=== PATIENT | female | born 1950 | race Caucasian/White ===

== ENCOUNTER 2016-11-20 14:51 | Outpatient (CLI) | payer MEDICARE, BC | END 2016-11-20 14:52 | disposition home or self-care (01) | DX: Z12.31 Encounter for screening mammogram for malignant neoplasm of breast (principal); Z80.3 Family history of malignant neoplasm of breast ==

== ENCOUNTER 2016-12-25 06:09 | Day surgery (SDC) | payer MEDICARE, BC ==
[2016-12-25] MEDS ORDERED: LACTATED RINGERS 1,000 ML IV ONE (07:11)
[2016-12-25] MEDS ORDERED: MIDAZOLAM 2 MG/2 ML VIAL IVP ONE (08:13)
[2016-12-25] MEDS ORDERED: fentaNYL 100 MCG/2 ML VIAL IVP ONE (08:13)
== END 2016-12-25 06:10 | disposition home or self-care (01) ==
PROC: 0DJD8ZZ Inspection of Lower Intestinal Tract, Via Natural or Artificial Opening Endoscopic (ICD-10-PCS; principal; 2016-12-25 08:15)
DX: Z12.11 Encounter for screening for malignant neoplasm of colon (principal); K64.8 Other hemorrhoids; E11.9 Type 2 diabetes mellitus without complications; E78.5 Hyperlipidemia, unspecified; I10 Essential (primary) hypertension; K21.9 Gastro-esophageal reflux disease without esophagitis; Z79.84 Long term (current) use of oral hypoglycemic drugs; Z79.82 Long term (current) use of aspirin; Z88.2 Allergy status to sulfonamides; Z90.710 Acquired absence of both cervix and uterus; Z83.3 Family history of diabetes mellitus; Z82.49 Family history of ischemic heart disease and other diseases of the circulatory system
CPT/HCPCS: G0121; J7120

== ENCOUNTER 2017-12-12 08:25 | Outpatient (CLI) | payer MEDICARE, BC ==
--- NOTE | 2017-12-13 15:41 | Mammography Report ---
DIGITAL SCREENING MAMMOGRAM: 12/12/2017 CLINICAL INDICATION: A 66-year-old for screening. COMPARISON: 10/2016, 07/2014, 05/2012, 08/2010. TECHNIQUE: Routine CC and MLO projections were obtained of the breasts. FINDINGS: The breasts demonstrate scattered fibroglandular densities bilaterally. Coarse and punctate, typically benign calcifications are present. No suspicious masses, clustered microcalcifications, or regions of architectural distortion are identified. IMPRESSION: BENIGN FINDINGS. RECOMMENDATION: Routine annual screening unless otherwise clinically indicated. BIRADS CATEGORY 2 - BENIGN FINDINGS. STANDARD QUALIFYING STATEMENTS: 1. This examination was reviewed with the aid of Computer-Aided Detection (CAD). 2. A negative or benign imaging report should not delay biopsy if clinically suspicious findings are present. Consider surgical consultation if warranted. More than 5% of cancers are not identified by imaging. 3. Dense breasts may obscure an underlying neoplasm. TD: 12/13/2017 15:40
== END 2017-12-12 08:26 | disposition home or self-care (01) ==
LOC: DI 08:25
PROVIDERS: ATTEND Physician Assistant
DX: Z12.31 Encounter for screening mammogram for malignant neoplasm of breast (principal)
CPT/HCPCS: 77067

== ENCOUNTER 2020-11-30 09:44 | Outpatient (CLI) | payer MEDICARE, BC ==
--- NOTE | 2020-12-01 09:38 | Mammography Report ---
BILATERAL DIGITAL SCREENING MAMMOGRAM 3D/2D: 11/30/2020 CLINICAL: Routine screening. Comparison is made to exams dated: 12/12/2017 mammogram, 11/20/2016 mammogram, 08/25/2014 mammogram, a nd 06/19/2012 mammogram - [facility]. There are scattered fibroglandular elements in both breasts. No significant masses, calcifications, or other findings are seen in either breast. There has been no significant interval change. IMPRESSION: NEGATIVE There is no mammographic evidence of malignancy. A 1 year screening mammogram is recommended. This exam was interpreted at Station ID: [id number]. NOTE: For mammograms, a report in lay terms will be sent to the patient. Approximately 15% of breast malignancies will not be visualized mammographically. In the management of a palpable breast mass, a negative mammogram must not discourage biopsy of a clinically suspicious lesion. Electronically Signed By: Devin Pagan M.D. ddp/penrad:11/30/2020 11:11:15 ACR BI-RADS Category 1: Negative 3341F PARENCHYMAL PATTERN: (A) - The breast(s) demonstrate(s) scattered fibroglandular densities. BI-RADS CATEGORY: (1) - 1 RECOMMENDATION: (ANNUAL) - Recommend routine annual screening mammography. [id number] 1 year screening LATERALITY: (B)
== END 2020-11-30 09:45 | disposition home or self-care (01) ==
LOC: DI 09:44
PROVIDERS: ATTEND Nurse Practitioner Family
DX: Z12.31 Encounter for screening mammogram for malignant neoplasm of breast (principal)

== ENCOUNTER 2020-12-03 07:16 | Day surgery (SDC) | payer MEDICARE, BC ==
[2020-12-03] MEDS ORDERED: LACTATED RINGERS 1,000 ML IV ONE ×2 (08:00→09:06)
[2020-12-03] MEDS ORDERED: fentaNYL 250 MCG/5 ML VIAL ONE (08:06)
[2020-12-03] MEDS ORDERED: MIDAZOLAM 2 MG/2 ML VIAL ONE ×3 (08:06→08:44)
[2020-12-03 09:29] VITALS: BP 114/69
== END 2020-12-03 07:17 | disposition home or self-care (01) ==
LOC: SDS 07:16
PROVIDERS: ATTEND Surgery
PROC: 0DBL8ZX Excision of Transverse Colon, Via Natural or Artificial Opening Endoscopic, Diagnostic (ICD-10-PCS; principal; 2020-12-03 08:30)
DX: Z12.11 Encounter for screening for malignant neoplasm of colon (principal); D12.3 Benign neoplasm of transverse colon; K57.30 Diverticulosis of large intestine without perforation or abscess without bleeding; Z83.71 Family history of colonic polyps; I10 Essential (primary) hypertension; E11.9 Type 2 diabetes mellitus without complications; Z79.84 Long term (current) use of oral hypoglycemic drugs
CPT/HCPCS: 45380; J3010; J7120; 88305

== ENCOUNTER 2022-10-17 12:45 | Outpatient (CLI) | payer MEDICARE, BC ==
--- NOTE | 2022-10-17 16:14 | DEXA Report ---
PROCEDURE: Dexa Spine and/or Hip INDICATIONS: OSTEOPENIA TECHNIQUE: Dual energy x-ray absorptiometry (DXA) was performed on a [employer] System. Regions measur ed are the AP Spine, femoral neck, and if needed forearm. COMPARISON: 12/10/2010 FINDINGS: Lumbar Spine: Bone Mineral Density 1.236 g/cm/cm,T score 0.1, normal Left Femoral Neck: Bone Mineral Density 0.775 g/cm/cm, T score minus 1., Osteopenia Left Hip: Bone Mineral Density 0.775 g/cm/cm,T score -1.8, osteopenia (T score greater or equal to -1.0: NORMAL) (T score from -1.1 to -2.4: OSTEOPENIA) (T score less than or equal to -2.5 to: OSTEOPOROSIS) Impression: Osteopenia. Patients with diagnosis of osteoporosis or osteopenia should have regular bone mineral density assess ment. For those eligible for Medicare, routine testing is allowed once every 2 years. Testing frequ ency can be increased for patients who have rapidly progressing disease or for those who are receivin g medical therapy to restore bone mass. Reviewed by: Bre Rader MD, PhD on 10/17/2022 4:12 PM PST Approved by: Bre Rader MD, PhD on 10/17/2022 4:12 PM PST Station ID: [id number]
== END 2022-10-17 12:46 | disposition home or self-care (01) ==
LOC: DI 12:45
PROVIDERS: ATTEND Nurse Practitioner Family
DX: M85.89 Other specified disorders of bone density and structure, multiple sites (principal)

== ENCOUNTER 2022-11-01 13:47 | Outpatient (CLI) | payer MEDICARE, BC ==
--- NOTE | 2022-11-02 15:38 | Mammography Report ---
BILATERAL DIGITAL SCREENING MAMMOGRAM 3D/2D: 11/01/2022 CLINICAL: Routine screening. Comparison is made to exams dated: 11/30/2020 mammogram, 12/12/2017 mammogram, 11/20/2016 mammogram, mammogram, and 06/19/2012 mammogram - [facility]. There are scattered areas of fibroglandular density in both breasts (category b / 25%-50% glandular t issue). No significant masses, calcifications, or other findings are seen in either breast. There has been no significant interval change. IMPRESSION: NEGATIVE There is no mammographic evidence of malignancy. A 1 year screening mammogram is recommended. Based on the Tyrer Cuzick model (a risk assessment model) the patients lifetime risk is 6.0% and her 10 year risk is 5.1%. According to the ACR, ACS, and NCCN guidelines, an annual breast MRI exam nael g with mammogram is recommended if the patients lifetime risk is 20% or greater. This exam was interpreted at Station ID: [id number]. NOTE: For mammograms, a report in lay terms will be sent to the patient. Approximately 15% of breast malignancies will not be visualized mammographically. In the management of a palpable breast mass, a negative mammogram must not discourage biopsy of a clinically suspicious lesion. Electronically Signed By: Rakesh segal/mana:11/01/2022 18:40:57 letter sent: No_Letter ACR BI-RADS Category 1: Negative 3341F PARENCHYMAL PATTERN: (A) - The breast(s) demonstrate(s) scattered fibroglandular densities. BI-RADS CATEGORY: (1) - 1 Mammogram [id number] 1 year screening LATERALITY: (B)
== END 2022-11-01 13:48 | disposition home or self-care (01) ==
LOC: DI 13:47
PROVIDERS: ATTEND Nurse Practitioner Family
DX: Z12.31 Encounter for screening mammogram for malignant neoplasm of breast (principal)

== ENCOUNTER 2023-05-01 12:49 | Outpatient (CLI) | payer MEDICARE, BC ==
--- NOTE | 2023-05-01 16:20 | XRAY Report ---
PROCEDURE: Finger(s) LT INDICATIONS: SPRAIN OF LEFT MIDDLE FINGER TECHNIQUE: AP hand, 2 views of the third finger(s) acquired. COMPARISON: None. FINDINGS: Bones: No fractures or dislocations. No suspicious bony lesions. Soft tissues: No suspicious soft tissue calcifications or masses. IMPRESSION: No acute bony abnormality. Reviewed by: Arsh Magaña MD on 05/01/2023 3:18 PM [facility] Approved by: Arsh Magaña MD on 05/01/2023 3:18 PM [facility] Station ID: [id number]
== END 2023-05-01 23:59 | disposition home or self-care (01) ==
LOC: DI.S 12:49
PROVIDERS: ATTEND Physician Assistant
DX: S63.693A Other sprain of left middle finger, initial encounter (principal)

== ENCOUNTER 2023-09-01 08:00 | Outpatient (CLI) | payer MEDICARE, BC | END 2023-09-01 08:01 | disposition home or self-care (01) | LOC: LAB.S 08:00 | PROVIDERS: ATTEND Emergency Medicine | DX: R55 Syncope and collapse (principal) | CPT/HCPCS: 82962 ==

== ENCOUNTER 2023-09-01 11:21 | Emergency (ER) | payer MEDICARE, BC ==
[2023-09-01 12:04] LABS: BASOPHILS % (AUTO) 0.3 %; EOSINOPHILS % (AUTO) 0.5 %; HCT - HEMATOCRIT 36.9 % (37.0-47.0); MEAN CORPUSCULAR HEMOGLOBIN 30.5 pg (27.0-31.0); MEAN CORPUSCULAR HGB CONC 32.5 g/dL (32.0-36.0); MEAN CORPUSCULAR VOLUME 93.9 fL (81.0-99.0); MEAN PLATELET VOLUME 8.8 fL (7.9-10.8); MONOCYTES # (AUTO) 0.6 10^3/uL (0.0-1.0); MONOCYTES % (AUTO) 9.9 %; NEUTROPHILS # (AUTO) 4.4 10^3/uL (1.5-6.6); PLT - PLATELET COUNT 265 10^3/uL (130-450); RED BLOOD COUNT 3.93 10^6/uL (4.20-5.40); RED CELL DISTRIBUTION WIDTH 12.4 % (12.0-15.0); WHITE BLOOD COUNT 6.1 x10^3/uL (4.8-10.8)
[2023-09-01 12:18] LABS: ALBUMIN 4.5 g/dL (3.2-5.5); ALBUMIN/GLOBULIN RATIO 1.6 (1.0-2.2); BILIRUBIN,TOTAL 0.4 mg/dL (0.2-1.0); CALCIUM 9.6 mg/dL (8.5-10.3); CREATININE 1.2 mg/dL (0.6-1.3); POTASSIUM 3.1 mmol/L (3.5-4.5); TOTAL PROTEIN 7.4 g/dL (6.4-8.9)
[2023-09-01 12:26] LABS: TROPONIN I HIGH SENSITIVITY 8.5 ng/L (2.3-14.8)
[2023-09-01] MEDS ORDERED: POTASSIUM CHLORIDE 20 MEQ TABLET PO STA (14:20)
--- NOTE | 2023-09-01 14:20 | ED Physician Documentation ---
PD HPI HEAD INJURY - Stated complaint Stated Complaint: PASSED OUT/CLINIC REFERRED - Chief complaint Chief Complaint: Trauma Hd/Nk - History obtained from History obtained from: Patient - History of Present Illness Mechanism of head injury: Fell Where head injury occurred: Home Timing - onset: Today Associated symptoms: LOC, Nausea / vomiting, Neck pain. No: AMS - Additional information Additional information: 72-year-old female with history of hypertension And type 2 diabetes currently on lisinopril, hydrochlorothiazide, simvastatin, metformin presents to the emergency department today for what she describes as a syncopal episode. Patient says she about to go to the bathroom around 5 AM this morning overall felt normal said that she normally feels pretty sleepy when she first wakes up she said that she was using the toilet she does not member if she stood up or not but she woke up on the ground with blood over her forehead. She did hit her forehead she feels uncertain about the timing of her loss of consciousness whether it happened before the fall or after the fall. She originally presented to the walk-in clinic who sent her here to the emergency department. The walk- in clinic use Dermabond to repair the laceration over her forehead. She says since she has been here she feels no dizziness no chest pain no nausea vomiting mild neck pain but no spinal tenderness. Patient says that her neck tenderness feels more musculoskeletal. Patient denies any use of blood thinners. She also endorses that she recently had about a 30 pound weight loss it was intentional and she is been trying to cut back on her weight. She has not been able to follow-up with her primary care provider about this to make some possible medication adjustments to reflect this weight loss in regards to her lisinopril, hydrochlorothiazide, metformin. 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: Tubal ligation, Hysterectomy, Oophrectomy - Present Medications Home Medications: Ambulatory Orders Medication Instructions Recorded Confirmed Allertec 1 tab PO DAILY 01/23/16 12/03/20 Aspirin [Aspir-Low] 81 mg PO DAILY 01/23/16 12/03/20 Calcium Carbonate/Vitamin D3 1 tab PO DAILY 01/23/16 12/25/16 [Calcium 500 + Vit D Caplet] Metformin HCl [Fortamet] 500 mg PO TID 01/23/16 12/03/20 Multivitamin [Multivitamins] 1 tab PO DAILY 01/23/16 12/03/20 Simvastatin 20 mg PO DAILY 01/23/16 12/03/20 hydroCHLOROthiazide [Hydrodiuril] 25 mg PO DAILY 01/23/16 12/03/20 lisinopriL [Lisinopril] 5 mg PO DAILY 01/23/16 12/03/20 - Allergies Allergies/Adverse Reactions: Allergies Allergy/AdvReac Type Severity Reaction Status Date / Time Sulfa (Sulfonamide Allergy Unknown Verified 09/01/23 11:32 Antibiotics) - Social History Does the pt smoke?: No Smoking Status: Never smoker Does the pt drink ETOH?: Yes Does the pt have substance abuse?: No - Immunizations Immunizations are current?: Yes PD ED PE NORMAL - Vitals Vital signs reviewed: Yes - General General: Alert and oriented X 3, Well developed/nourished - HEENT HEENT: PERRL, Moist mucous membranes, Other (About a 4 cm laceration well- approximated with Dermabond to her forehead just superior to her nose. No raccoon eyes. No Reece sign ) - Neck Neck: Supple, no meningeal sign, No bony TTP - Cardiac Cardiac: RRR, No gallop, Strong equal pulses - Respiratory Respiratory: No respiratory distress, Clear bilaterally - Back Back: No CVA TTP, No spinal TTP - Extremities Extremities: No deformity - Neuro Neuro: Alert and oriented X 3, revenue manager 2-12 intact, No motor deficit, No sensory deficit, Normal speech Eye Opening: Spontaneous Motor: Obeys Commands Verbal: Oriented GCS Score: 15 - Psych Psych: Normal mood Results - Vitals Vitals: Vital Signs - 24 hr 09/01/23 09/01/23 09/01/23 11:27 14:01 15:13 Temperature 36.2 C L Heart Rate 76 70 68 Heart Rate [ Sitting] Heart Rate [ Standing] Heart Rate [ Supine] Respiratory 16 18 20 Rate Blood Pressure 118/63 145/78 H 146/69 H Blood Pressure [Sitting] Blood Pressure [Standing] Blood Pressure [Supine] O2 Saturation 99 100 97 09/01/23 09/01/23 16:35 16:39 Temperature Heart Rate Heart Rate [ 69 Sitting] Heart Rate [ 70 Standing] Heart Rate [ 68 Supine] Respiratory 18 Rate Blood Pressure Blood Pressure 157/75 H [Sitting] Blood Pressure 129/70 [Standing] Blood Pressure 153/73 H [Supine] O2 Saturation 100 Oxygen O2 Source Room air - EKG (time done) 1133 EKG releavant findings:: EKG personally interpreted by author of this note. Relevant findings are: Rate: Rate (enter#) (66) Rhythm: NSR Benson: Normal Intervals: Normal MS QRS: Normal Ischemia: Normal ST segments Computer interpretation: Agree with computer - Labs Labs: Laboratory Tests 09/01/23 09/01/23 11:59 11:59 WBC 6.1 RBC 3.93 L Hgb 12.0 Hct 36.9 L MCV 93.9 MCH 30.5 MCHC 32.5 RDW 12.4 Plt Count 265 MPV 8.8 Neut # (Auto) 4.4 Lymph # (Auto) 1.0 L [place] # (Auto) 0.6 Eos # (Auto) 0.0 Baso # (Auto) 0.0 Absolute Nucleated RBC 0.00 Nucleated RBC % 0.0 Sodium 133 L Potassium 3.1 L Chloride 94 L Carbon Dioxide 31 Anion Gap 8.0 BUN 17 Creatinine 1.2 Estimated GFR (MDRD) 44 L Glucose 169 H Calcium 9.6 Total Bilirubin 0.4 AST 17 ALT 13 Alkaline Phosphatase 63 Troponin I High Sens 8.5 Total Protein 7.4 Albumin 4.5 Globulin 2.9 Albumin/Globulin Ratio 1.6 Lipase 42 - Rads (name of study) ct head and cervical w/o Relevant Findings:: Final report received, EMP independent interpretation of test (No intracranial hemorrhage, no other acute intracranial abnormalities,), Other (Chronic cervical degenerative changes, no other acute findings or abnormalities) PD Medical Decision Making - ED course ED course: 72-year-old female presents emergency department sent in from walk-in clinic after experiencing what sounds like a vasovagal syncopal episode this morning upon first awakening. Head laceration was repaired with dermabond. CT head and cervical without con were complete. There were no acute abnormalities or findings. Patient remained stable throughout entire ER visit she did have mild orthostatic hypotension but was asymptomatic with this. Patient has not been able to follow-up with her primary care provider to discuss her 30 pound weight loss. She was told to hold off on taking her hydrochlorothiazide until she is able to follow-up with her primary care provider. Labs are complete in the emergency department, CBC did not reveal any acute leukocytosis, no significant anemia, chemistry did reveal potassium was 3.1 patient is on hydrochlorothiazide potassium was replaced with 40 mill equivalents p.EKG was also completed which did not reveal any bradycardia no ST elevation no T wave inversions and normal axis. CT head and neck were also complete which did not reveal any acute intracranial hemorrhages or acute cervical fractures or abnormalities. Serbian syncope risk score was -3 points making her very low risk of 30-day serious adverse event. Patient was monitored for over 4 hours in the emergency department she had no neurological changes no focal neurological deficits remained hemodynamically stable throughout entire visit. She was told she needs to follow-up with her primary care provider sometime next week for further evaluation of her labs and possible discontinuation of either hydrochlo rothiazide or lisinopril or reduction in doses. Patient was given very strict return precautions and was told that although labs and CT are normal today if she starts to feel worse or have any neurological deficits or changes to present back to the emergency department for further evaluation. She was able to provide teach back supportive partner at bedside who also understands return precautions and safe for discharge at this time. Departure - Departure Disposition: 01 Home, Self Care Clinical Impression: Syncope Qualifiers: Syncope type: vasovagal syncope Qualified Code(s): R55 - Syncope and collapse Condition: Good Instructions: ED Syncope Vasovagal Comments: Thank you for trusting us with your care we have completed a CT of your head and neck which were overall unremarkable. We also completed an EKG which is also not show any acute abnormalities or findings. Your potassium was found to be low we gave you 40 mill equivalents potassium orally. Because you have had this recent weight loss I would strongly encourage you to follow-up with your primary care provider about the syncopal episode that you experienced today and consider discontinuation or adjustment of medications especially your hydrochlorothiazide and lisinopril. Please come back to the emergency department if you are starting to experience any chest pain, dizziness, shortness of breath or any other concerning symptoms. As we discussed if you start to feel dizzy or have any vision changes or new confusion please comeback to the ER for further evalution. Forms: PCP List Discharge Date/Time: 09/01/23 16:40
--- NOTE | 2023-09-01 15:15 | CT Report ---
PROCEDURE: Head WO INDICATIONS: GLF, hit head, LOC TECHNIQUE: Noncontrast 4.5 mm thick angled axial sections acquired from the foramen magnum to the vertex. For r adiation dose reduction, the following was used: automated exposure control, adjustment of mA and/or kV according to patient size. COMPARISON: None. FINDINGS: Image quality: There is streak artifact seen through the skull base. CSF spaces: Basal cisterns are patent. No extra-axial fluid collections. Ventricles are normal in size and shape. Brain: No midline shift. No intracranial masses or hemorrhage. Calzada-white matter interface is norm al. Skull and face: Calvarium and visualized facial bones are intact, without suspicious lesions. Sinuses: Visualized sinuses and mastoids are clear. IMPRESSION: No intracranial hemorrhage is seen. No acute intracranial pathology. Reviewed by: Patrick Frost MD on 09/01/2023 2:13 PM [facility] Approved by: Patrick Frost MD on 09/01/2023 2:13 PM [facility] Station ID: [id number]
--- NOTE | 2023-09-01 15:16 | CT Report ---
PROCEDURE: Cervical Spine WO INDICATIONS: neck pain after GLF TECHNIQUE: Noncontrast 3 mm thick sections acquired from the skull base to the T4 level. Sagittal and coronal r eformats were then constructed. For radiation dose reduction, the following was used: automated exp osure control, adjustment of mA and/or kV according to patient size. COMPARISON: Correlation is made with the accompanying head CT. FINDINGS: Image quality: Excellent. Bones: No fractures or dislocations. Visualized superior ribs are intact. Focal degenerative change can be seen involving the C1-C2 interface anteriorly. There is mild to mode rate disc space narrowing seen at C4-C5. Moderate to severe disc space narrowing can be seen at C5-C6 and C6-C7, with associated endplate irregularity and sclerosis. At C5-C6 and C6-C7, with bridging an terior osteophytes are seen. Posteriorly directed endplate osteophytes are seen, which are worst at C 5-C6. Milder degenerative changes are seen elsewhere. Multiple levels of facet hypertrophy can be se en. Soft tissues: Prevertebral soft tissues are normal in thickness. No paravertebral hematomas. No ap ical pneumothoraces. IMPRESSION: Negative for acute fracture. Cervical spine degenerative changes can be seen, which are worst inferiorly. Reviewed by: Patrick Frost MD on 09/01/2023 2:15 PM [facility] Approved by: Patrick Frost MD on 09/01/2023 2:15 PM [facility] Station ID: [id number]
[2023-09-01] MEDS ORDERED: KETOROLAC 15 MG/ML VIAL IM STA (15:38)
[2023-09-01] MEDS ORDERED: ACETAMINOPHEN 325 MG TABLET PO STA (15:38)
[2023-09-01 16:41] VITALS: BP 153/73; O2SAT 100
== END 2023-09-01 16:40 | disposition home or self-care (01) ==
LOC: ED 11:21
DX: R55 Syncope and collapse (principal); E87.6 Hypokalemia; S01.81XD Laceration without foreign body of other part of head, subsequent encounter; W18.39XD Other fall on same level, subsequent encounter; I10 Essential (primary) hypertension; E11.9 Type 2 diabetes mellitus without complications; R63.4 Abnormal weight loss; Z79.84 Long term (current) use of oral hypoglycemic drugs
CPT/HCPCS: 36415; 70450; 72125; 80053; 83690; 84484; 85025; 93005; 96372; 99284; A9270

== ENCOUNTER 2024-02-22 08:26 | Outpatient (CLI) | payer MEDICARE, BC ==
--- NOTE | 2024-02-25 10:56 | Mammography Report ---
BILATERAL DIGITAL DIAGNOSTIC MAMMOGRAM 3D/2D: 02/22/2024 CLINICAL: Palpable lump in left chest wall. Due for bilateral exam. Comparison is made to exams dated: 11/01/2022 mammogram, 11/30/2020 mammogram, 12/12/2017 mammogram, 11/20 mammogram, and 08/25/2014 mammogram - [facility]. There are scattered areas of fibroglandular density in both breasts (category b / 25%-50% glandular t issue). No significant masses, calcifications, or other findings are seen in either breast. IMPRESSION: INCOMPLETE: NEEDS ADDITIONAL IMAGING EVALUATION There is no abnormality seen in the left breast to correspond with the area of clinical concern and p alpable abnormality indicated by triangular marker at 12 o'clock in the posterior depth, however, ul luann is recommended for further evaluation and is scheduled to immediately follow this examinatio n. Based on the Tyrer Cuzick model (a risk assessment model) the patient's lifetime risk is 5.4% and her 10 year risk is 5.4%. According to the ACR, ACS, and NCCN guidelines, an annual breast MRI exam nael g with mammogram is recommended if the patient's lifetime risk is 20% or greater. This exam was interpreted at Station ID: [id number]. NOTE: For mammograms, a report in lay terms will be sent to the patient. Approximately 15% of breast malignancies will not be visualized mammographically. In the management of a palpable breast mass, a negative mammogram must not discourage biopsy of a clinically suspicious lesion. Electronically Signed By: Rakesh Medina M.D. aty/:02/22/2024 09:15:46 ACR BI-RADS Category 0: Incomplete 3340F PARENCHYMAL PATTERN: (A) - The breast(s) demonstrate(s) scattered fibroglandular densities. BI-RADS CATEGORY: (0) - 0 Ultrasound [id number] Immediate follow-up LATERALITY: (L)
--- NOTE | 2024-02-25 10:57 | Ultrasound Report ---
LIMITED ULTRASOUND OF LEFT BREAST: 02/22/2024 CLINICAL: Palpable left breast lump. Comparison is made to exams dated: 11/01/2022 mammogram and 11/30/2020 mammogram - [facility]. Color flow ultrasound of the left breast upper inner quadrant was performed. Calzada scale images of t he real-time examination were reviewed. No significant abnormalities were seen sonographically in the left breast. Area of concern correlate s with a rib. IMPRESSION: NEGATIVE There is no sonographic evidence of malignancy. There is no abnormality seen in the left breast to correspond with the area of clinical concern and p alpable abnormality at 12 o'clock in the posterior depth in the upper aspect, however, recommend cli nical follow up for persistent or worsening symptoms, or development of any clinically suspicious fin dings. A 1 year screening mammogram is recommended. Findings and recommendations were conveyed to the patient during today's evaluation. This exam was interpreted at Station ID: [id number]. Electronically Signed By: Rakesh Medina M.D. aty/:02/22/2024 13:35:10 Ultrasound BI-RADS: 1 Negative BI-RADS CATEGORY: (1) - 1 RECOMMENDATION: (ANNUAL) - Recommend routine annual screening mammography. [id number] 1 year screening LATERALITY: (B)
== END 2024-02-22 08:27 | disposition home or self-care (01) ==
LOC: DI 08:26
PROVIDERS: ATTEND Nurse Practitioner Family
DX: N63.22 Unspecified lump in the left breast, upper inner quadrant (principal); R92.323 Mammographic fibroglandular density, bilateral breasts

== ENCOUNTER 2024-02-25 08:00 | Outpatient (CLI) | payer MEDICARE, BC | END 2024-02-25 23:59 | disposition home or self-care (01) | LOC: LAB 08:00 | PROVIDERS: ATTEND Emergency Medicine | DX: L72.3 Sebaceous cyst (principal) | CPT/HCPCS: 87070; 87205 ==

== ENCOUNTER 2024-04-14 06:21 | Day surgery (SDC) | payer MEDICARE, BC ==
[2024-04-14] MEDS ORDERED: ceFAZolin 2 GM VIAL ONE (06:23)
[2024-04-14] MEDS: LACTATED RINGERS 1,000 ML IV ONE ×2 (06:29→08:33)
[2024-04-14] MEDS: ACETAMINOPHEN 500 MG TABLET PO ONE (06:50)
[2024-04-14] MEDS ORDERED: BUPIVACAINE 0.5% PF 10 ML VIAL ONE ×2 (06:59)
[2024-04-14] MEDS ORDERED: LIDOCAINE 1%-EPI 1:100000 20 ML MDV ONE (06:59)
[2024-04-14] MEDS ORDERED: PROPOFOL 200 MG/20 ML VIAL IVP ONE (07:05)
[2024-04-14] MEDS ORDERED: fentaNYL 100 MCG/2 ML VIAL ONE (07:06)
--- NOTE | 2024-04-14 07:15 | ANESTHESIA ---
Pre-Anesthesia VS, & Labs - Diagnosis perineal infected sebaceous cyst - Procedure excision of infected perineal sebaceous cyst Vital Signs: Temp Pulse Resp BP Pulse Ox O2 Flow Rate 36.1 C L 62 15 140/67 H 100 04/14/24 06:38 04/14/24 06:38 04/14/24 06:38 04/14/24 06:38 04/14/24 06:38 Height: 5 ft 5 in Weight (kg): 64.1 kg Body Mass Index: 23.5 BMI Classification: Normal - NPO >8 hours - Is Patient ?: No Home Medications and Allergies Home Medications: Ambulatory Orders Acyclovir 400 mg PO PRN PRN 04/03/24 Calcium Carbonate [Tums (Calcium Carbonate 500mg)] 500 mg PO PRN PRN 04/03/24 Famotidine [Acid Speech Communication Professor] 20 mg PO BID 04/03/24 Aspirin [Aspir-Low] 81 mg PO QPM 01/23/16 Calcium Carbonate/Vitamin D3 [Calcium 500 + Vit D Caplet] 1 tab PO DAILY 01/23/16 Metformin HCl [Fortamet] 500 mg PO TID 01/23/16 Multivitamin [Multivitamins] 1 tab PO DAILY 01/23/16 Simvastatin 20 mg PO QPM 01/23/16 hydroCHLOROthiazide [Hydrodiuril] 25 mg PO DAILY 01/23/16 lisinopriL [Lisinopril] 5 mg PO DAILY 01/23/16 Acyclovir 400 mg PO PRN PRN 04/03/24 Calcium Carbonate [Tums (Calcium Carbonate 500mg)] 500 mg PO PRN PRN 04/03/24 Famotidine [Acid Speech Communication Professor] 20 mg PO BID 04/03/24 Allergies/Adverse Reactions: Allergies Allergy/AdvReac Type Severity Reaction Status Date / Time Sulfa (Sulfonamide Allergy Rash Verified 04/03/24 15:37 Antibiotics) Anes History & Medical History - Anesthetic History Anesthesia Complications: reports: No previous complications - Medical History Cardiovascular: reports: Hypertension, High cholesterol, Murmur (normal ECHO 2012) Pulmonary: reports: None Gastrointestinal: reports: GERD Urinary: reports: None Neuro: reports: None Musculoskeletal: reports: Osteopenia Endocrine/Autoimmune: reports: Type 2 diabetes Skin: reports: None Smoking Status: Never smoker Psychosocial: reports: No issues indicated History of Cancer?: No - Surgical History General: reports: Colonoscopy Eyes Ears Nose Throat (EENT): reports: Cataracts Gynecologic: reports: Hysterectomy, Oophrectomy Exam General: Alert, Oriented x3, Cooperative, No acute distress Dental: WNL Mouth Openin Fingerbreadth Neck Mobility: Normal Mallampati classification: I Thyromental Distance: 4-6 cm Mental/Cognitive Status: Alert/Oriented X3, Normal for patient Plan Anesthesia Type: General Consent for Procedure(s) Verified and Reviewed: Yes Code Status: Attempt Resuscitation ASA classification: 2-Mild systemic disease Is this case an emergency?: No
[2024-04-14] MEDS ORDERED: ONDANSETRON 4 MG/2 ML VIAL IVP PRN ×2 (07:18→08:03)
[2024-04-14] MEDS ORDERED: fentaNYL 100 MCG/2 ML VIAL IVP PRN (07:18)
[2024-04-14] MEDS ORDERED: HYDROmorphone 0.5 MG/0.5 ML SYRINGE IVP PRN (07:18)
[2024-04-14] MEDS ORDERED: NALOXONE 0.4 MG/ML VIAL IVP PRN (07:18)
[2024-04-14] MEDS ORDERED: MORPHINE 2 MG/ML CARPUJECT IVP PRN (07:18)
[2024-04-14] MEDS ORDERED: ATROPINE ABBOJECT 1 MG/10 ML SYRINGE IVP PRN (07:18)
[2024-04-14] MEDS ORDERED: LACTATED RINGERS 1,000 ML IV SCH (08:00)
[2024-04-14] MEDS ORDERED: IBUPROFEN 600 MG TABLET PO PRN (08:03)
--- NOTE | 2024-04-14 08:09 | OPERATIVE REPORT ---
Operative Report - General Procedure Date: 04/14/24 Planned Procedure: excision of sebaceous cyst Pre-Op Diagnosis: infected sebaceous cyst Procedure Performed: excision of sebaceous cyst Post Op Diagnosis: infected sebaceous cyst - Procedure Note Primary Surgeon: Dr. Alana White Secondary Surgeon: none Anesthesia Provider: Juana Guillaume CRNA Anesthesia Technique: Local, MAC Pathology: left perineum sebaceous cyst Estimated Blood Loss (mL): 3 Indications: The patient has a sebaceous cyst in her left perineum that has recently become infected and drained. There is no further drainage at this time. To prevent re current symptoms, the patient was evaluated in the office for excision. We discussed the risks, benefits, and alternatives of the procedure including bleeding, infection, wound healing problems, damage to surrounding structures, numbness in the area, and recurrent symptoms. The patient voiced understanding, her questions were answered, and she wished to proceed. A consent was signed by the patient prior to the procedure. Findings: 1.Left peroneal sebaceous cyst, removed intact. Excision of tissue down to subcutaneous fat. Total area of excision is 0.5 x 1.5 cm Complications: None - Other Other Information/Narrative: The patient was taken to the operating room and placed in the supine position. Preop antibiotics were given. ERAS medications were given. The patient was prepped and draped in the usual sterile fashion. A preop surgical timeout was performed. Attention was turned to the patient's left perineum. An incision was made which incorporated both palpable mass and the overlying skin due to the recent drainage from the skin. Skin flaps were raised medially and laterally to the in cision to completely excise the cyst. The cyst was dissected from the surrounding tissue circumferentially and removed. It was sent for permanent pathology. The edges of the cavity were inspected and hemostasis was confirmed. The cavity was irrigated with 50 mL of warm normal saline. The deep dermal tissues were closed with 3-0 Vicryl. A 4-0 Monocryl running stitch was placed in a subcuticular fashion. A sterile dressing was placed. Total area of excision was 1.5 x 0.5 cm, down to the subcutaneous fat. The patient tolerated the procedure well. There were no complications. Of note, the patient was given sedation by the nurses supervised by oh for the duration of this procedure.
[2024-04-14 08:29] VITALS: O2SAT 100
[2024-04-14 08:40] VITALS: BP 130/62
--- NOTE | 2024-04-14 15:16 | ANESTHESIA POST OP EVALUATION ---
Anesthesia Post Eval - Post Anesthesia Eval Vitals: Last Vital Signs Temp 36.1 C L 04/14/24 08:06 Pulse 66 04/14/24 08:39 Resp 16 04/14/24 08:39 BP 130/62 04/14/24 08:39 Pulse Ox 100 04/14/24 08:39 O2 Flow Rate CV Function Including HR & BP: Stable Pain Control: Satisfactory Nausea & Vomiting: Negative Mental Status: Baseline Respiratory Status: Airway Patent Hydration Status: Satisfactory Anesthesia Complications: None
== END 2024-04-14 06:22 | disposition home or self-care (01) ==
LOC: SDS 06:21
PROVIDERS: ATTEND Surgery
PROC: 0HB9XZZ Excision of Perineum Skin, External Approach (ICD-10-PCS; principal; 2024-04-14 07:30)
DX: L72.0 Epidermal cyst (principal); E11.9 Type 2 diabetes mellitus without complications; I10 Essential (primary) hypertension; E78.5 Hyperlipidemia, unspecified; Z79.84 Long term (current) use of oral hypoglycemic drugs; Z79.82 Long term (current) use of aspirin
CPT/HCPCS: 11422; 12041; A9270; J7120